=== PATIENT | female | born 1945 | race Two or more races ===

== ENCOUNTER → 2025-01-10 13:50 | Outpatient (REF) | payer OTHER, SELFPAY ==
[2025-01-10 15:40] LABS: Hematocrit 36.9 % (37.0-47.0); Hemoglobin 11.2 g/dL (12.0-16.0); Mean Corp Hgb Conc. 30.4 g/dL (33.0-37.0); Mean Corpuscular Volume 80.2 fL (81.0-99.0); Nucleated Red Blood Cells % 0 %; Platelet Count 472 10^3/uL (130-400); Red Cell Dist. Width 17.6 % (11.5-14.5)
[2025-01-10 16:13] LABS: ALT (SGPT) 26 U/L (0-35); AST (SGOT) 33 U/L (14-36); Albumin 4.3 g/dl (3.5-5.0); Alkaline Phosphatase 88 U/L (38-126); Blood Urea Nitrogen 12 mg/dl (7-17); Calcium 9.2 mg/dl (8.4-10.2); Carbon Dioxide 25 mmol/L (22-30); Chloride 106 mmol/L (98-107); Glucose 113 mg/dl (70-99); HDL Cholesterol 60 mg/dl; LDL Cholesterol, Calculated 60 mg/dl; Potassium 3.7 mmol/L (3.5-5.1); Sodium 141 mmol/L (135-145); Total Protein 7.3 g/dl (6.3-8.2); Very Low Density Lipoprotein 42 mg/dl (0-30); eGFR > 60.00
[2025-01-10 16:28] LABS: Vitamin D, 25-OH*** < 12.8 ng/mL (30-80)
[2025-01-10 16:41] LABS: TSH 0.03 uIU/ml (0.47-4.68)
[2025-01-11 09:59] LABS: Glycohemoglobin (HgbA1c) 5.6 % (4.0-5.6)
[2025-01-13 03:36] LABS: Total T3 (Sendout) 156 ng/dL (80-200)
== END ==
LOC: REG 13:50
PROVIDERS: ATTENDING PHYSICIAN Physician Assistant Medical; FAMILY PHYSICIAN Family Medicine
DX: E03.8 Other specified hypothyroidism (principal); Z00.00 Encounter for general adult medical examination without abnormal findings; E55.9 Vitamin D deficiency, unspecified; M81.0 Age-related osteoporosis without current pathological fracture; R73.01 Impaired fasting glucose
CPT/HCPCS: 36415; 80053; 80061; 82306; 83036; 84439; 84443; 84480; 85025

== ENCOUNTER → 2025-02-02 13:35 | Outpatient (REF) | payer OTHER, SELFPAY ==
[2025-02-02 14:46] LABS: Hematocrit 34.6 % (37.0-47.0); Hemoglobin 10.6 g/dL (12.0-16.0); Mean Corp Hgb Conc. 30.6 g/dL (33.0-37.0); Mean Corpuscular Volume 79.7 fL (81.0-99.0); Nucleated Red Blood Cells % 0 %; Platelet Count 427 10^3/uL (130-400); Red Cell Dist. Width 17.7 % (11.5-14.5); Reticulocyte Count 1.5 % (0.4-2.8)
[2025-02-02 14:55] LABS: INR 2.62; PT 28.4 Sec (11.4-14.6)
[2025-02-02 15:56] LABS: Iron 35 ug/dl (37-170)
[2025-02-02 16:06] LABS: Total Iron Binding Capacity 407 ug/dl (265-497)
[2025-02-02 16:32] LABS: Ferritin 8.5 ng/ml (11.1-264.0)
[2025-02-02 17:04] LABS: Folate 6.3 ng/ml (2.76-20); Vitamin B12 443 pg/ml (239-931)
== END ==
LOC: WDC 13:35
PROVIDERS: ATTENDING PHYSICIAN Physician Assistant Medical; FAMILY PHYSICIAN Family Medicine
DX: Z86.711 Personal history of pulmonary embolism (principal); D64.9 Anemia, unspecified; Z12.31 Encounter for screening mammogram for malignant neoplasm of breast
CPT/HCPCS: 36415; 77063; 77067; 82607; 82728; 82746; 83540; 83550; 85025; 85045; 85610